=== PATIENT | male | born 1975 | race Caucasian/White ===

== ENCOUNTER 2023-10-31 04:51 | Emergency (ER) | payer OTHER, SELFPAY ==
[2023-10-31] VITALS (12 sets, daily range): BP systolic 113–128; BP diastolic 71–96; PULSE 60–78
[2023-10-31 05:44] LABS: % Basophils 0.6 % (0-2); % Eosinophils 3.6 % (0-6); % Immature Granulocytes 0.3 % (0-0.5); % Lymphocytes 27.8 % (20.5-51.1); % Monocytes 7.7 % (1.7-9.3); Absolute Eosinophils 0.3 10^3/uL (0-0.7); Absolute Monocytes 0.6 10^3/uL (0.1-0.6); Absolute Neutrophils 4.3 10^3/uL (1.4-6.5); Hematocrit 43.7 % (39.0-52.0); Hemoglobin 15.9 g/dL (13.0-18.0); Mean Corp Hgb Conc. 36.4 g/dL (33.0-37.0); Mean Corpuscular Hgb 30.9 pg (27.0-31.0); Mean Platelet Volume 9.6 fL (7.4-10.4); Nucleated Red Blood Cells % 0 % (-); Platelet Count 241 10^3/uL (130-400); Red Blood Cell Count 5.14 10^6/uL (4.70-6.10); Red Cell Dist. Width 12.1 % (11.5-14.5); White Blood Cell Count 7.2 10^3/uL (4.8-10.8)
[2023-10-31 05:59] LABS: COVID-19 Antigen Negative (Negative)
[2023-10-31 06:00] LABS: ALT (SGPT) 35 U/L (0-50); AST (SGOT) 24 U/L (17-59); Albumin 4.1 g/dl (3.5-5.0); Alkaline Phosphatase 86 U/L (38-126); Blood Urea Nitrogen 13 mg/dl (9-20); Calcium 9.2 mg/dl (8.4-10.2); Carbon Dioxide 21 mmol/L (22-30); Chloride 109 mmol/L (98-107); Glucose 113 mg/dl (70-99); Potassium 4.3 mmol/L (3.5-5.1); Sodium 135 mmol/L (135-145); Total Bilirubin 0.3 mg/dl (0.2-1.3); Total Protein 6.5 g/dl (6.3-8.2); eGFR > 60.00
[2023-10-31 06:12] LABS: Troponin I < 0.012 ng/ml
[2023-10-31] MEDS: NSS 1000 IV (06:53)
[2023-10-31] MEDS: ANTIVERT 25 MG PO (06:53)
--- NOTE | 2023-10-31 07:22 | EDRN ---
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
administered per the providers orders, orthostatic vital signs performed with no issues, will continue to monitor the pt closely
--- NOTE | 2023-10-31 07:57 | EDRN ---
Dr. Ventura currently at the pts bedside speaking with the pt and the pts son
--- NOTE | 2023-10-31 08:18 | EDRN ---
the pt pressed the call ying and stated that he needed to use the bathroom, the pt was able to ambulate to the bathroom and back to the stretcher with no issues
[2023-10-31] MEDS: TORADOL 30 MG IV (08:37)
--- NOTE | 2023-10-31 09:34 | ED.GENMED ---
History of Present Illness
General
Chief Complaint: Dizziness
Source: patient and family
Time Seen by Provider: 10/31/23 06:02
History of Present Illness
History of Present Illness:
This is a 47yo male who presents with dizziness. he states that he awoke at 2am feeling dizzy. he reports room spinning. he also complains of STUBBS. he reports that at home they checked his BP and it was 'low'. he denies CP. no sob. no fevers. no
hearing deficits, no vision changes. no tinnitus. No injury.
Past History
Past History
ED Past Medical History: None
Social History
Tobacco: Smoker
Alcohol: None
Drug: None
Phy Exam
Physical Exam
Physical Exam:
CONSTITUTIONAL Patient alert and oriented to person, place and time. Well-appearing. Vital signs reviewed.
HEAD atraumatic, normocephalic.
EYES eyelids normal to inspection, Pupils equally round and reactive to light, Extraocular muscles intact, Conjunctiva normal, Sclera normal. Mild horizontal nystagmus noted when the patient laid flat
NECK normal range of motion, Trachea midline, no jugular venous distention.
RESPIRATORY CHEST No respiratory distress noted, Chest expansion equal, Bilateral breath sounds clear.
CARDIOVASCULAR regular rate and rhythm, Heart sounds normal.
ABDOMEN No distention.
BACK normal inspection, no obvious deformities
UPPER EXTREMITY range of motion normal, Motor strength normal, no cyanosis, no edema.
LOWER EXTREMITY range of motion normal, Motor strength normal, no cyanosis, no edema.
NEURO Speech normal, No focal motor deficits, Jose Alfredo coma scale 15, Memory normal, Cranial Nerves intact to screening exam. no pronator drift, nl finger to nose.
Course
Orders/Labs/Results
Orders:
Orders
10/31/23 05:03
Electrocardiogram (*1) Urgent
Reason for Study: Vertigo / Dizzy
EKG- Treatment ONCE
10/31/23 05:36
CMP [Comprehensive Metabolic Panel] Urgent
COVID-19 Antigen Urgent
Source: Nasal Swab
Complete Blood Count/With Diff Urgent
Troponin I Urgent
10/31/23 06:40
0.9% Sodium Chloride 1000 ml [Nss] 1,000 ml IV BOLUS
Meclizine [Antivert] 25 mg PO NOW STA
10/31/23 07:59
CT Head W/o Iv Contrast Urgent
Comment:
Reason For Exam: Headache
10/31/23 08:33
Ketorolac [Toradol] 30 mg IV NOW STA
Abnormal Lab Results
10/31/23
05:36
Chloride 109 H mmol/L
(98-107)
Carbon Dioxide 21 L mmol/L
(22-30)
Glucose 113 H mg/dl
(70-99)
10/31/23 05:36
10/31/23 05:36
Vital Signs
Initial and Last Documented VS:
Initial Vital Signs
Temp Pulse Resp BP Pulse Ox
97.6 F 64 24 115/82 98
10/31/23 04:59 10/31/23 04:59 10/31/23 04:59 10/31/23 04:59 10/31/23 04:59
Last Documented Vital Signs
Temp Pulse Resp BP Pulse Ox
98.5 F 49 17 116/74 97
10/31/23 08:32 10/31/23 09:15 10/31/23 09:15 10/31/23 09:00 10/31/23 09:15
MDM/Problems Addressed
MDM/Problems Addressed:
vertigo
*Radiology
Radiology exam reviewed: preliminary read by ED provider (no obvious ICH, ) and radiology read reviewed
*Pulse Oximetry
Patient hypoxic: no
*EKG
Interpreted by ED Provider?: Yes
Interpretation: abnormal
Rate: bradycardiac
Rhythm: sinus
Chazy: normal axis
QRS Pattern: normal QRS
Ischemia: no ischemia
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
Rate: normal
Interpretation: normal
Rhythm: sinus
*Critical Care Note
Total Time (30-74mins, 75-104mins- exclusive of procedures): Not Applicable
Data Reviewed
Source: patient and family
Further Testing Considered But Not Given:
Consider CTA or nuclear concern for dissection
Patient Management
Escalation/DeEscalation of care consider admission/obs:
Patient reassessed and feels much improved. I do suspect vertigo as symptoms were much worse when he laid flat. Symptoms improved after meclizine and Toradol. Did have a mild headache. CT negative for gross intracranial hemorrhage or other
space-occupying lesion. Neuroexam is normal.
ED Attending Note
-
Portions of this chart may have been created with voice recognition software.� Occasional wrong word or��sound alike� substitutions may have occurred due to the inherent limitations of voice recognition software.
Discharge Plan
Departure
Patient Disposition: Home (Routine Discharge)
Date of Disposition: 10/31/23
Time of Disposition: 09:34
Patient with high blood pressure during this ER visit?: No
Discharge Problem:
Vertigo
Instructions: Vertigo ED
Prescriptions:
New
meclizine 25 mg tablet
25 mg PO TID Qty: 14 0RF
Referrals:
NONE,* [Family Provider] -
Activity Restrictions/Additional Instructions:
Please see your doctor in follow-up in the next 3 to 5 days. Return immediately for difficulty walking, motor weakness of any kind, vision changes, intractable vomiting or any other concerns.
Interventions
Interventions:
*Risk Screen - Suicide Last Done: 10/31/23 05:39
*General Assessment Last Done: 10/31/23 05:39
*Neglect/Abuse Screening Last Done: 10/31/23 05:39
ED- Fall Risk Assessment Last Done: 10/31/23 05:39
*ED COVID-19 Vaccine History Last Done: 10/31/23 05:39
QV-Zoxuny-Atgsszhrtc Assessment Last Done: 10/31/23 05:39
ED- Cardiac Assessment Last Done: 10/31/23 05:39
ED- Neurological Assessment Last Done: 10/31/23 05:39
ED- Pulmonary Assessment Last Done: 10/31/23 05:39
ED Swallowing Screen Last Done: 10/31/23 06:03
Discharge Date and Time
Print Language: POLISH
--- NOTE | 2023-10-31 09:38 | EDRN ---
the pt is stating that he is ready to go home, the pt is stating that the dizziness is gone and that his headache is now currently a 0/10, Dr. Murphy currently at the pts bedside speaking with the pt and the pts son
== END 2023-10-31 09:40 | disposition home or self-care (01) ==
LOC: EMR 04:51
PROVIDERS: Student in an Organized Health Care Education/Training Program; EMERGENCY PHYSICIAN Emergency Medicine
DX: R42 Dizziness and giddiness (principal); R51.9 Headache, unspecified; F17.200 Nicotine dependence, unspecified, uncomplicated
CPT/HCPCS: 99284; 96374; 96361; 70450; 80053; 84484; 85025; 87811; 93005